=== PATIENT | male | born 1950 | race Caucasian/White ===

== ENCOUNTER 2023-02-25 18:23 | Emergency (ER) | payer MEDICARE, SELFPAY ==
[2023-02-25 18:29] VITALS: BP 127/75; PULSE 94; RESP 16; TEMP 36.6; O2SAT 97; BMI 27.9
--- NOTE | 2023-02-25 18:56 | ECG_ITS ---
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
--- NOTE | 2023-02-25 18:56 | CT_ITS ---
The [address] [address] Patient Name: MERT ALVARADO MRN: [id number] date: 1950 Sex: M Assigned Patient Location: ER Current Patient Location: ER Accession/Order Number: [id number] Exam Date: 02/25/2023 19:08 Report Date: 02/25/2023 19:23 At the request of: BIGG HERNÁNDEZ Procedure: CT head/brain wo con CT head/brain wo con, 02/25/2023 7:08 PM EST INDICATION: Lightheadedness COMPARISON: There is no appropriate prior study for comparison. TECHNIQUE: Axial CT images of the brain from skull base to vertex, including portions of the face and sinuses, were obtained without contrast . Multiplanar reformatted images were generated and reviewed as needed. Dose reduction techniques were achieved by using automated exposure control and/or adjustment of mA and/or kV according to patient size and/or use of iterative reconstruction technique. FINDINGS: The cerebral sulci as well as ventricular system are appropriate for age. There is no intracranial mass, mass effect, midline shift, intra or extra-axial fluid collection or hemorrhage. Lacunar infarct within the left thalamus is noted. The visualized portions of orbits, mastoid air cells as well as paranasal sinuses are unremarkable. There is status post bilateral lens replacement. There is no suspicious osteolytic or osteoblastic lesion. CT/CT head/brain wo con IMPRESSION: No acute intracranial process is noted. Electronically authenticated by: SMITA TATUM Date: 02/25/2023 19:23
--- NOTE | 2023-02-25 18:56 | XR_ITS ---
The [address] [address] Patient Name: MERT ALVARADO MRN: [id number] date: 1950 Sex: M Assigned Patient Location: ED.MAIN Current Patient Location: ER Accession/Order Number: [id number] Exam Date: 02/25/2023 19:08 Report Date: 02/25/2023 19:26 At the request of: BIGG HERNÁNDEZ Procedure: XR chest 1V EXAM: XR chest 1V at 1905 hours HISTORY: Lightheadedness COMPARISON: 08/21/2011 TECHNIQUE: AP upright portable chest x-ray FINDINGS: The heart is not enlarged and the vasculature is not distended. No acute infiltrate, effusion or pneumothorax is identified. The osseous structures are grossly intact. XR/XR chest 1V IMPRESSION: No acute infiltrate or evidence of cardiac decompensation. The overall appearance of the chest is essentially unchanged. Electronically authenticated by: MARIO HATCH Date: 02/25/2023 19:26
--- NOTE | 2023-02-25 18:57 | ED.GENADUL1 ---
HPI - General Adult General Chief complaint: Dizziness Stated complaint: BP ISSUES Time Seen by Provider: 02/25/23 18:37 Source: patient Mode of arrival: walk-in Limitations: no limitations History of Present Illness HPI narrative: Patient is a 72-year-old male who presents to the emergency department for the evaluation of generalized fatigue and dizziness over the last day. He denies any syncope, headache, visual changes, chest pain, shortness of breath, nausea, vomiting, peripheral paresthesias. He states he feels lightheaded on standing but has no sensation of spinning or the room spinning. No medications taken prior to arrival. He states his primary concern is that when he checked his vital signs at home his blood pressure was normal but his heart rate was in the 90s which is very high for him. Related Data Previous Rx's Medication Instructions Recorded cephalexin 500 mg capsule 500 mg PO Q8H 5 days #15 caps 02/25/23 ondansetron 4 mg disintegrating 4 mg PO Q6H PRN nausea and 02/25/23 tablet vomiting #12 tabs Allergies Allergy/AdvReac Type Severity Reaction Status Date / Time No Known Drug Allergies Allergy Verified 02/25/23 18:37 Review of Systems ROS Constitutional Denies: fever or chills Ears, nose, mouth, and throat Denies: throat pain or nasal congestion Cardiovascular Denies: chest pain Respiratory Denies: shortness of breath or cough Gastrointestinal Denies: nausea or vomiting Genitourinary Denies: painful urination Musculoskeletal Denies: back pain or neck pain Integumentary/Breast Denies: rash Neurological Reports: dizziness; Denies: headache Hematologic/Lymphatic Denies: easy bruising PFSH PFS Social History Smoking status: Never smoker Exam Narrative Exam Narrative: Gen.: Awake, alert, in no distress Head: Normocephalic, atraumatic ENT: Moist mucous membranes Respiratory: No respiratory distress, lungs clear bilaterally Cardio: Regular rate and rhythm Gastrointestinal: Abdomen is soft, nondistended and nontender to palpation Extremities: Moves extremities equally, no injuries noted Psych: Normal mood and affect Neuro: No focal neuro deficit Skin: Warm, dry, intact Constitutional Vital Signs, click to edit/add: Last Vital Signs Temp 98 F 02/25/23 18:29 Pulse 77 02/25/23 19:23 Resp 16 02/25/23 19:23 BP 116/64 02/25/23 19:23 Pulse Ox 95 02/25/23 19:23 O2 Del Method Room Air 02/25/23 19:23 Course Vital Signs Vital signs: Vital Signs Temperature 98 F 02/25/23 18:29 Pulse Rate 94 H 02/25/23 18:29 Respiratory Rate 16 02/25/23 18:29 Blood Pressure 127/75 02/25/23 18:29 Pulse Oximetry 97 02/25/23 18:29 Oxygen Delivery Method Room Air 02/25/23 18:29 Temperature 98 F 02/25/23 18:29 Pulse Rate 77 02/25/23 19:23 Respiratory Rate 16 02/25/23 19:23 Blood Pressure 116/64 02/25/23 19:23 Pulse Oximetry 95 02/25/23 19:23 Oxygen Delivery Method Room Air 02/25/23 19:23 Medical Decision Making MDM Narrative Medical decision making narrative: Patient is Treated with IV fluids, his vital signs remained stable in the ER, he has no complaints of chest pain or shortness of breath. CT of the brain, chest x-ray are unremarkable and lab studies show mild leukocytosis with mild urinary tract infection and mild renal insufficiency. TSH is also elevated. Patient will be treated with Keflex, Zofran for home for UTI and he is encouraged to increase fluids. He reports feeling better after IV fluids in the ER. He will follow-up with his PCP for additional testing on his thyroid. He is stable at time of discharge home. Return to the ER if symptoms change or worsen Medical Records Medical records reviewed: Yes I reviewed the patient's medical records Lab Data Lab results reviewed: Yes I reviewed the patient's lab results Labs: Lab Results 02/25/23 02/25/23 02/25/23 Range/Units 18:43 19:30 20:34 WBC 14.9 H (4.0-11.0) 10^3/uL RBC 4.22 L (4.70-6.10) 10^6/uL Hgb 12.9 L (14.0-18.0) g/dL Hct 37.9 L (42.0-54.0) % MCV 89.8 (80.0-94.0) fL MCH 30.6 (25.9-34.0) pg MCHC 34.0 (29.9-35.2) g/dL RDW 12.2 (11.0-15.0) % Plt Count 251 (150-450) 10^3/uL MPV 9.2 L (9.5-13.5) fL Neut % (Auto) 75.3 H (43.0-75.0) % Lymph % (Auto) 16.5 L (20.5-60.0) % [place] % (Auto) 6.1 (1.7-12.0) % Eos % (Auto) 1.0 (0.9-7.0) % Baso % (Auto) 0.3 (0.2-2.0) % Neut # (Auto) 11.3 H (1.4-6.5) 10^3/uL Lymph # (Auto) 2.5 (1.2-3.8) 10^3/uL [place] # (Auto) 0.9 H (0.3-0.8) 10^3/uL Eos # (Auto) 0.2 (0.0-0.7) 10^3/uL Baso # (Auto) 0.0 (0.0-0.1) 10^3/uL Abs Immat Gran (auto) 0.12 H (0.00-0.03) 10^3/uL Imm/Tot Granulo (auto) 0.8 H (0.0-0.5) % PT 9.4 (9.0-11.6) sec INR <0.93 Sodium 134 L (136-145) mmol/L Potassium 5.1 (3.5-5.1) mmol/L Chloride 101 (98-107) mmol/L Carbon Dioxide 24.2 (21.0-32.0) mmol/L Anion Gap 13.9 BUN 35.0 H (7.0-18.0) mg/dL Creatinine 1.71 H (0.70-1.30) mg/dL Est GFR ( Amer) 48 L (>=60) Est GFR (Non-Af Amer) 40 L (>=60) BUN/Creatinine Ratio 20.5 Glucose 93 (74-106) mg/dL Calcium 9.4 (8.5-10.1) mg/dL Total Bilirubin 0.5 (0.2-1.0) mg/dL AST 22 (15-37) U/L ALT 35 (16-63) U/L Alkaline Phosphatase 56 (46-116) U/L Troponin I High Sens 6.9 (4.0-76.1) pg/mL Total Protein 6.9 (6.4-8.2) g/dL Albumin 3.3 L (3.4-5.0) g/dL Globulin 3.6 g/dL Albumin/Globulin Ratio 0.9 TSH 6.362 H (0.358-3.740) uIU/mL Urine Color Lt. yellow (YELLOW) Urine Clarity Clear (CLEAR) Urine pH 6.0 (5.0-9.0) Ur Specific [place] 1.020 (1.005-1.025) Urine Protein Negative (NEG/TRACE) mg/dL Urine Glucose (UA) Negative (NEGATIVE) mg/dL Urine Ketones Negative (NEGATIVE) mg/dL Urine Occult Blood Negative (NEGATIVE) Urine Nitrite Negative (NEGATIVE) Urine Bilirubin Negative (NEGATIVE) Urine Urobilinogen 0.2 (0.2-1.0) EU/dL Ur Leukocyte Esterase Trace A (NEGATIVE) Urine RBC 5-10 A (0-2) #/HPF Urine WBC 2-5 A (NONE SEEN) #/HPF Ur Squamous Epith Cells Few A (NONE/RARE) #/LPF Urine Crystals None seen (None Seen) #/HPF Urine Bacteria Small A (NONE SEEN) #/HPF Urine Casts Seen A (NONE SEEN) #/LPF Hyaline Casts Moderate Urine Mucus Small A (NONE SEEN) Ur Culture Indicated? Yes Influenza Type A Ag Negative Influenza Type B Ag Negative SARS-CoV-2 Ag (CV2AG) Negative (NEGATIVE) Imaging Data CT scan - head: Attestation: I have reviewed the pertinent imaging results. Radiologist's impression: ITS Impressions Chest X-Ray 02/25/23 18:56 IMPRESSION: No acute infiltrate or evidence of cardiac decompensation. The overall appearance of the chest is essentially unchanged. Electronically authenticated by: MARIO HATCH Date: 02/25/2023 19:[address] 02/25/23 18:56 IMPRESSION: No acute intracranial process is noted. Electronically authenticated by: SMITA TATUM Date: 02/25/2023 19:23 ECG Data Attestation: I personally reviewed and interpreted this ECG as follows: (Normal sinus rhythm at a rate of 91, no acute ST elevation or ectopy. EKG reviewed by attending physician) Discharge Plan Discharge Chief Complaint: Dizziness Clinical Impression: Acute dehydration, Lightheadedness, Elevated TSH, Acute UTI Patient Disposition: Home, Self-Care Time of Disposition Decision: 21:06 Condition: Good Mode of Transportation: Private Vehicle Prescriptions / Home Meds: New cephalexin 500 mg capsule 500 mg PO Q8H 5 Days Qty: 15 0RF ondansetron 4 mg tablet,disintegrating 4 mg PO Q6H PRN (Reason: nausea and vomiting) Qty: 12 0RF Instructions: Dehydration (ED), Urinary Tract Infection in Men (ED) Additional Instructions: Please follow up with your doctor to have additional testing for your thyroid Stand Alone Forms: Portal Instructions Referrals: Physician,Non-Staff, MD [Primary Care Provider] - 1 week Discharge Date/Time: 02/25/23 21:25
[2023-02-25] MEDS: 0.9 % SODIUM CHLORIDE 1,000 ML 999 ML IV (19:15)
[2023-02-25 19:16] LABS: Basophils Percent Auto 0.3 % (0.2-2.0); Eosinophils Absolute Auto 0.2 10^3/uL (0.0-0.7); Hematocrit 37.9 % (42.0-54.0); Hemoglobin 12.9 g/dL (14.0-18.0); Immature Granulocytes Abs Auto 0.12 10^3/uL (0.00-0.03); Immature Granulocytes Pct Auto 0.8 % (0.0-0.5); Lymphocytes Absolute Auto 2.5 10^3/uL (1.2-3.8); Lymphocytes Percent Auto 16.5 % (20.5-60.0); Mean Corpuscular Hemoglobin 30.6 pg (25.9-34.0); Mean Corpuscular Volume 89.8 fL (80.0-94.0); Mean Platelet Volume 9.2 fL (9.5-13.5); Monocytes Absolute Auto 0.9 10^3/uL (0.3-0.8); Monocytes Percent Auto 6.1 % (1.7-12.0); Neutrophils Absolute Auto 11.3 10^3/uL (1.4-6.5); Neutrophils Percent Auto 75.3 % (43.0-75.0); Platelet Count 251 10^3/uL (150-450); Red Blood Count 4.22 10^6/uL (4.70-6.10); Red Cell Distribution Width 12.2 % (11.0-15.0); White Blood Count 14.9 10^3/uL (4.0-11.0)
[2023-02-25 19:23] VITALS: BP 116/64; PULSE 77; RESP 16; O2SAT 95
[2023-02-25 19:33] LABS: Prothrombin Time 9.4 sec (9.0-11.6)
[2023-02-25 19:36] LABS: INR <0.93
[2023-02-25 19:43] LABS: Alanine Aminotransferase 35 U/L (16-63); Albumin Globulin Ratio 0.9; Albumin Level 3.3 g/dL (3.4-5.0); Alkaline Phosphatase 56 U/L (46-116); Anion Gap 13.9; Aspartate Amino Transferase 22 U/L (15-37); BUN Creatinine Ratio 20.5; Bilirubin Total 0.5 mg/dL (0.2-1.0); Calcium 9.4 mg/dL (8.5-10.1); Carbon Dioxide 24.2 mmol/L (21.0-32.0); Chloride 101 mmol/L (98-107); Estimated GFR (African America 48 (>=60); Estimated GFR (Non-African Ame 40 (>=60); Globulin 3.6 g/dL; Glucose 93 mg/dL (74-106); Potassium 5.1 mmol/L (3.5-5.1); Sodium 134 mmol/L (136-145); Total Protein 6.9 g/dL (6.4-8.2)
[2023-02-25 19:46] LABS: Thyroid Stimulating Hormone 6.362 uIU/mL (0.358-3.740); Troponin I High Sensitivity 6.9 pg/mL (4.0-76.1)
[2023-02-25 19:56] LABS: Influenza Virus A Antigen Negative; Influenza Virus B Antigen Negative; Internal Control Within Normal Limits; SARS-CoV-2 Ag NEGATIVE (NEGATIVE)
[2023-02-25 20:46] LABS: Bilirubin Urine NEGATIVE (NEGATIVE); Blood Urine NEGATIVE (NEGATIVE); Clarity Urine CLEAR (CLEAR); Color Urine LT. YELLOW (YELLOW); Glucose Urine UA NEGATIVE (NEGATIVE); Ketones Urine NEGATIVE (NEGATIVE); Leukocyte Esterase Urine TRACE (NEGATIVE); Nitrite Urine NEGATIVE (NEGATIVE); Protein Urine NEGATIVE (NEG/TRACE); Urobilinogen Urine 0.2 EU/dL (0.2-1.0)
[2023-02-25 20:47] LABS: Urine Microscopic Indicated YES
[2023-02-25 20:58] LABS: Bacteria Urine SMALL #/HPF (NONE SEEN); Cast Seen? SEEN #/LPF (NONE SEEN); Crystals Seen? None Seen #/HPF (None Seen); Hyaline Casts Urine MODERATE; Mucus Urine SMALL (NONE SEEN); Squamous Epithelial Cell Urine FEW #/LPF (NONE/RARE); Urine Culture Indicated YES
[2023-02-25] MEDS: CEPHALEXIN 500 MG CAPSULE PO (21:21)
== END 2023-02-25 21:25 | disposition home or self-care (01) ==
PROVIDERS: Physician Assistant; Emergency Provider Internal Medicine; Family Provider Family Medicine
DX: N39.0 Urinary tract infection, site not specified (principal); E86.0 Dehydration; R42 Dizziness and giddiness; R94.6 Abnormal results of thyroid function studies; Z20.822 Contact with and (suspected) exposure to COVID-19
CPT/HCPCS: 36415; 70450; 71045; 80053; 81001; 84443; 84484; 85025; 85610; 87086; 87635; 87804; 87811; 93005; 99285